=== PATIENT | female | born 1965 | race Two or more races ===

== ENCOUNTER 2019-08-26 16:37 | Inpatient (IN) | payer MEDICAID, OTHER ==
[~2019-08-26] VITALS: Ht 160 cm; Wt 113.4 kg
[2019-08-26] MEDS ORDERED: ONDANSETRON HCL 4 MG/2 ML VIAL IV ONE (17:00)
[2019-08-26] MEDS ORDERED: MORPHINE SULF INJ 2 MG/ML SYRINGE 1ML IV ONE (17:00)
[2019-08-26] MEDS ORDERED: SODIUM CHLORIDE 0.9% 1,000 ML IV ONE (17:00)
[2019-08-26 17:29] LABS: Albumin 2.2 g/dL (3.4-5.0); Calcium 8.3 mg/dL (8.5-10.1)
[2019-08-26 17:31] LABS: Basophils # (auto) 0.1 uL; Lymphocytes # (auto) 0.8 uL
[2019-08-26 17:32] LABS: BUN/Creatinine Ratio 50.7; Bilirubin, Total 0.3 mg/dL (0.2-1.0); Total Protein 5.9 g/dL (6.4-8.2)
[2019-08-26 17:33] LABS: Basophils % (auto) 1.3 % (0.0-2.0); Eosinophils # (auto) 0 uL; Eosinophils % (auto) 0.5 % (0.0-7.0); Hematocrit 19.4 % (36.0-46.0); Lymphocytes % (auto) 9.9 % (10.0-50.0); Mean Corpuscular Hemoglobin 27.5 pg (28.0-32.0); Mean Corpuscular Hgb Conc. 34.6 g/dL (32.0-36.0); Mean Corpuscular Volume 79.6 fL (80.0-100.0); Monocytes # (auto) 0.6 uL; Monocytes % (auto) 7.2 % (0.0-12.0); Neutrophils # (auto) 6.4 uL; Neutrophils % (auto) 81.1 % (37.0-80.0); Nucleated Red Blood Cells % 0.1 %; Platelet Count (auto) 243 10^3/uL (140-450); Red Blood Cells 2.44 10^6/uL (4.0-5.20); White Blood Cell 7.8 10^3/uL (4.4-10.8)
[2019-08-26 17:41] LABS: Hemoglobin 6.7 g/dL (12.2-16.2)
[2019-08-26 17:42] LABS: Potassium 6.3 mmol/L (3.5-5.1)
[2019-08-26] MEDS ORDERED: SODIUM BICARBONATE 8.4% INJ 50ML SYRINGE ONE (17:56)
[2019-08-26] MEDS ORDERED: SODIUM BICARBONATE 8.4 % INJ 50ML VIAL IV ONE (18:00)
[2019-08-26] MEDS ORDERED: CALCIUM GLUC 4.65meq/50ml D5AE 50 ML IV ONE ×2 (18:00→22:45)
[2019-08-26] MEDS: NOREPINEPHRINE 8 MG/250ML KIT 250 ML IV SCH (18:30)
[2019-08-26] MEDS ORDERED: DEXTROSE (50%) 50ML SYRG IV ONE ×2 (19:15→22:45)
[2019-08-26] MEDS ORDERED: NITROGLYCERIN 0.4 MG SL TAB SL PRN (19:15)
[2019-08-26] MEDS ORDERED: SODIUM BICARBONATE 50ML VIAL 50 ML in SOD CHL 0.45% 1,000 ML IV ONE (19:15)
[2019-08-26] MEDS ORDERED: ALBUTEROL SULF 2.5 MG/0.5ML(0.5%) NEB SOLN NEB ONE (19:15)
[2019-08-26] MEDS ORDERED: InsuLIN REG 1unit/0.01ml Soln (100units/ml) IV ONE ×2 (19:15→22:45)
[2019-08-26] MEDS ORDERED: MORPHINE SULF INJ 2 MG/ML SYRINGE 1ML IV PRN ×2 (19:15)
[2019-08-26] MEDS ORDERED: AZITHROMYCIN 500MG/ 250ML 250 ML IV SCH (19:15)
[2019-08-26] MEDS ORDERED: ALBUTEROL SULF 2.5 MG/0.5ML(0.5%) NEB SOLN ONE (19:27)
[2019-08-26] MEDS: AZITHROMYCIN 500MG/ 250ML 250 ML IV SCH (20:51)
[2019-08-26] MEDS: cefTRIAXone 1GM/50ML D5W 50 ML IV SCH (20:52)
[2019-08-26 22:25] LABS: BUN/Creatinine Ratio 51.4
[2019-08-26 22:37] VITALS: BP 69/32
[2019-08-26 22:38] LABS: Potassium 6.3 mmol/L (3.5-5.1)
[2019-08-26] MEDS ORDERED: SODIUM ZIRCONIUM CYCL 10 GM PAK PO ONE (22:45)
[2019-08-26] MEDS ORDERED: SODIUM BICARBONATE 8.4% INJ 50ML SYRINGE IV ONE (22:45)
[2019-08-26 23:00] VITALS: BP 78/29
[2019-08-26 23:39] VITALS: BP 75/23
[2019-08-26] MEDS ORDERED: ALBUMIN 5% 250 ML IV ONE (23:45)
[2019-08-27] MEDS ORDERED: VASOPRESSIN 20 UNIT/ML ONE (00:43)
[2019-08-27] MEDS ORDERED: VASOPRESSIN 50 UNITS in D5W 5% 247.5 ML IV SCH (00:45)
[2019-08-27] MEDS ORDERED: PHENYLEPHRINE INJ 20 MG in SODIUM CHL 0.9% 250 ML IV SCH ×2 (01:30→01:36)
[2019-08-27] MEDS ORDERED: PHENYLEPHRINE IV 250 ML IV ONE ×2 (01:47→03:49)
[2019-08-27] MEDS ORDERED: EPINEPHrine HCL 250 ML IV SCH (03:32)
[2019-08-27] MEDS ORDERED: EPINEPHrine HCL 250 ML IV ONE (03:36)
[2019-08-27] MEDS: ALBUTEROL SULF 2.5 MG/0.5ML(0.5%) NEB SOLN NEB SCH ×3 (05:44→18:00)
[2019-08-27] MEDS: IPRATROPIUM BROM 0.5 MG/2.5ML INH SOL NEB SCH ×3 (05:44→18:00)
[2019-08-27] MEDS ORDERED: ALBUMIN 5% 250 ML IV ONE (05:45)
[2019-08-27 06:38] LABS: BUN/Creatinine Ratio 40.2; Calcium 8.1 mg/dL (8.5-10.1)
[2019-08-27 06:45] LABS: Potassium 6.3 mmol/L (3.5-5.1)
[2019-08-27] MEDS ORDERED: CALCIUM GLUC 4.65meq/50ml D5AE 50 ML IV ONE (07:00)
[2019-08-27] MEDS ORDERED: DEXTROSE (50%) 50ML SYRG IV ONE (07:00)
[2019-08-27] MEDS ORDERED: SODIUM BICARBONATE 8.4 % INJ 50ML VIAL IV ONE (07:00)
[2019-08-27] MEDS ORDERED: SODIUM ZIRCONIUM CYCL 10 GM PAK PO ONE (07:00)
[2019-08-27] MEDS ORDERED: InsuLIN REG 1unit/0.01ml Soln (100units/ml) IV ONE (07:00)
[2019-08-27 07:48] LABS: Hematocrit 22.8 % (36.0-46.0); Hemoglobin 7.5 g/dL (12.2-16.2); Mean Corpuscular Hemoglobin 27.9 pg (28.0-32.0); Mean Corpuscular Volume 84.6 fL (80.0-100.0); Platelet Count (auto) 255 10^3/uL (140-450); Red Cell Distribution Width 15.9 % (11.8-14.3); White Blood Cell 9.4 10^3/uL (4.4-10.8)
[2019-08-27 07:52] LABS: Basophils % (manual) 0 (0.0-2.0); Blast Cells 0; Promyelocytes % 0; Reactive Lymphocytes 0
[2019-08-27 08:03] LABS: INR 1.11 (0.9-1.15); Partial Thromboplastin Time 33.6 sec (23.64-32.05)
[2019-08-27 08:25] LABS: Band Neutrophils % (manual) 10; Eosinophils % (manual) 2 (0-7); Lymphocytes % (manual) 11 (10.0-50.0); Metamyelocytes % 3; Monocytes % (manual) 9 (0-12); Myelocytes % 1
[2019-08-27] MEDS: PHENYLEPHRINE INJ 40 MG in SODIUM CHL 0.9% 250 ML IV SCH ×2 (11:10→18:09)
[2019-08-27] MEDS ORDERED: VANCOMYCIN PER PHARMACY 0 MG IV SCH (15:30)
[2019-08-27] MEDS ORDERED: VANCOMYCIN 1GM/250ML 250 ML IV ONE (15:30)
[2019-08-27] MEDS ORDERED: VANCOMYCIN 1GM/250ML 250 ML IV SCH (16:00)
[2019-08-27] MEDS ORDERED: MORPHINE SULF INJ 2 MG/ML SYRINGE 1ML IV PRN (16:15)
[2019-08-27] MEDS ORDERED: LORazepam 2MG/ML-1ML VIAL IV PRN (16:15)
[2019-08-27] MEDS ORDERED: LORazepam 2MG/ML-1ML VIAL ONE (16:22)
[2019-08-27] MEDS ORDERED: ONDANSETRON HCL 4 MG/2 ML VIAL IV PRN (17:15)
[2019-08-27] MEDS: HYOSCYAMINE SULF 0.125 MG ODT TAB PO PRN ×2 (17:45→22:06)
[2019-08-27] MEDS: NOREPINEPHRINE 8 MG/250ML KIT 250 ML IV SCH (18:00)
[2019-08-27] MEDS: cefTRIAXone 1GM/50ML D5W 50 ML IV SCH (18:09)
[2019-08-27] MEDS: AZITHROMYCIN 500MG/ 250ML 250 ML IV SCH (18:09)
[2019-08-28 01:20] VITALS: BP 57/23
[2019-09-01 08:36] LABS: Folate (Folic Acid) 11.2 ng/mL (5.38-24)
== END 2019-08-28 02:06 | disposition expired | DRG 720 ==
LOC: ER 16:37 → EDBD 16:37 → TELE 16:38
PROVIDERS: ADMIT Nurse Practitioner Acute Care; ATTEND Hospitalist
PROC: 30233N1 Transfusion of Nonautologous Red Blood Cells into Peripheral Vein, Percutaneous Approach (ICD-10-PCS; principal; 2019-08-26)
DX: A41.9 Sepsis, unspecified organism (principal); J96.02 Acute respiratory failure with hypercapnia; R65.21 Severe sepsis with septic shock; J90 Pleural effusion, not elsewhere classified; G92 Toxic encephalopathy; J18.9 Pneumonia, unspecified organism; C50.919 Malignant neoplasm of unspecified site of unspecified female breast; Z51.5 Encounter for palliative care; F31.9 Bipolar disorder, unspecified; G40.909 Epilepsy, unspecified, not intractable, without status epilepticus; D50.9 Iron deficiency anemia, unspecified; E87.1 Hypo-osmolality and hyponatremia; B19.20 Unspecified viral hepatitis C without hepatic coma; E87.5 Hyperkalemia; Z66 Do not resuscitate; Z85.3 Personal history of malignant neoplasm of breast; Z79.899 Other long term (current) drug therapy
CPT/HCPCS: 36415; 36600; 71045; 80048; 80053; 82607; 82746; 82805; 82962; 83605; 84132; 85007; 85025; 85027; 85610; 85730; 86850; 86900; 86901; 86920; 87040; 93005; 94640; 96365; 96367; 96375; G0378; J0171; J0610; J0696; J1815; J2405; J7060